=== PATIENT | female | born 1990 | race Two or more races ===

== ENCOUNTER 2018-08-30 19:07 | Emergency (ER) | payer SELFPAY ==
[~2018-08-30] VITALS: Ht 172.7 cm; Wt 59.0 kg
[2018-08-30] MEDS ORDERED: ONDANSETRON HCL 4MG/2ML INJ IV STA (19:39)
[2018-08-30] MEDS ORDERED: SODIUM CHLORIDE 0.9% 1,000 ML IV ONE (19:39)
[2018-08-30 20:35] LABS: EOSINOPHILS % 0.5 % (0.0-5.0); HEMATOCRIT. 40.4 % (36.0-48.0); HEMOGLOBIN. 13.4 g/dL (12.0-16.0); LYMPHOCYTES % 43.7 % (20.0-50.0); MEAN CORPUSCULAR HEMOGLOBIN 31.8 pg (28.0-32.0); MEAN CORPUSCULAR VOLUME 95.7 fL (81.0-99.0); MEAN PLATELET VOLUME 7.4 fl (7.4-10.4); MONOCYTES % 12.1 % (2.0-8.0); NEUTROPHILS % 42.7 % (40.0-76.0); PLATELET 316 x1000/uL (130-400); RED BLOOD CELL COUNT 4.22 mill/uL (4.2-5.4); RED CELL DISTRIBUTION WIDTH 13.3 % (11.6-14.6)
[2018-08-30 20:40] LABS: CHLORIDE 109 mEq/L (98-107)
[2018-08-30 20:42] LABS: HCG SCREEN NEGATIVE
[2018-08-30 20:54] LABS: ETHANOL BLOOD 405 mg/dL
[2018-08-30 22:45] VITALS: BP 96/65
== END 2018-08-30 23:47 | disposition home or self-care (01) ==
LOC: ER 19:07
DX: F10.129 Alcohol abuse with intoxication, unspecified (principal)
CPT/HCPCS: 36415; 70450; 80053; 84703; 85025; 87186; 96374; 99284; J2405; J7030; Z7610